=== PATIENT | female | born 1975 | race American Indian/Alaskan Native ===

== ENCOUNTER 2016-10-18 14:55 | Outpatient (CLI) | payer OTHER, MEDICAID ==
[2016-10-18 15:16] VITALS: BP 124/80
== END 2016-10-18 17:52 | disposition home or self-care (01) ==
LOC: TRG 14:55
PROVIDERS: ATTEND Obstetrics & Gynecology
DX: O09.523 Supervision of elderly multigravida, third trimester (principal); O47.1 False labor at or after 37 completed weeks of gestation; Z3A.39 39 weeks gestation of pregnancy
CPT/HCPCS: 59025

== ENCOUNTER 2016-10-18 22:47 | Outpatient (CLI) | payer MEDICAID, OTHER | END 2016-10-19 00:51 | disposition home or self-care (01) | LOC: TRG 22:47 | PROVIDERS: ATTEND Obstetrics & Gynecology | DX: O09.523 Supervision of elderly multigravida, third trimester (principal); O62.9 Abnormality of forces of labor, unspecified; Z3A.39 39 weeks gestation of pregnancy ==

== ENCOUNTER 2016-10-19 11:35 | Inpatient (IN) | payer OTHER ==
[2016-10-19] MEDS ORDERED: BRETHINE SUB-Q PRN (12:41)
[2016-10-19] MEDS ORDERED: ePHEDrine SULFATE IV PRN ×2 (12:41→15:40)
[2016-10-19] MEDS ORDERED: MINERAL OIL PO PRN (12:41)
[2016-10-19] MEDS ORDERED: STADOL IV PRN (12:41)
[2016-10-19] MEDS ORDERED: SUBLIMAZE IV PRN (12:41)
[2016-10-19] MEDS ORDERED: BRETHINE IVP PRN (12:41)
[2016-10-19] MEDS ORDERED: XYLOCAINE 2% INFILTRATI ONE (12:41)
[2016-10-19] MEDS ORDERED: POLYCILLIN/NS 2 GM/100 ML 2 GM/100 ML BAG IV ONE (12:41)
[2016-10-19] MEDS ORDERED: NARCAN 0.4 MG/1 ML IV PRN (12:41)
[2016-10-19] MEDS ORDERED: ZOFRAN IV PRN ×2 (12:41→18:47)
[2016-10-19] MEDS ORDERED: PHENERGAN PO PRN ×2 (12:41→18:47)
--- NOTE | 2016-10-19 12:49 | History and Physical Report ---
History of Present Illness Date of examination: 10/19/16 Date of admission: 10/19/16 12:35 Chief complaint: Labor History of present illness: Pt is a 40yo BF EDC 10/19/16; EGA 40 0/7 weeks presents to L&D complaining of RUC's q 3-5 mins. She received care at [facility] since 15 weeks and course has been complicated by AMA and Positive syphilis with a 1:8 titer that was treated 04/09/16, and followed by ID. records are available and GBS is Positive Past History Past Medical History: no pertinent history Past Surgical History: no surgical history [employer] History: herpes, syphilis Family/Genetic History: none Social history: no significant social history, single - Obstetrical History Expected Date of Delivery: 10/19/16 Actual Gestation: 40 Week(s) 0 Day(s) : 4 Medications and Allergies Allergies Allergy/AdvReac Type Severity Reaction Status Date / Time No Known Allergies Allergy Unverified 10/18/16 15:28 Home Medications Medication Instructions Recorded Confirmed Last Taken Type No Known Home Medications [No 10/18/16 10/18/16 Unknown History Reported Home Medications] Review of Systems All systems: negative - Physical Exam Breasts: Positive: deferred Cardiovascular: Regular rate Lungs: Positive: Clear to auscultation Abdomen: Positive: normal appearance Genitourinary (Female): Positive: normal external genitalia Vagina: Positive: normal moisture Uterus: Positive: enlarged Extremities: Positive: normal - Obstetrical FHR: category 1 Uterine Contraction Monitor Mode: External Cervical Dilatation: 5 Cervical Effacement Percentage: 70 station: -2 Uterine Contraction Pattern: Regular Uterine Tone Measurement Phase: Contraction Uterine Contraction Intensity: Moderate Results All other labs normal. Assessment and Plan - Patient Problems (1) 39 weeks gestation of Onset Date: 10/19/16 Current Visit: Yes Status: Acute Plan to address problem: A: IUP @ 39 6/7 weeks in labor + RPR - treated this + GBS AMA P: Admit to L&D for expectant vaginal delivery Obtain RPR today IV Ampicillin
[2016-10-19] MEDS ORDERED: LACTATED RINGERS 1,000 ML IV SCH (13:00)
[2016-10-19] MEDS ORDERED: PITOCin/NS 20 UNIT/1000ML DRIP 20 UNITS/1,000 ML BAG IV SCH ×2 (13:00→19:00)
[2016-10-19] MEDS ORDERED: PITOCin/NS 30 UNIT/500ML 30 UNITS/500 ML BAG IV SCH ×2 (13:00)
[2016-10-19 14:12] LABS: Hemoglobin 13.3 gm/dl (10.1-14.3); Mean Corpuscular HGB Conc 33 % (30-34); Mean Corpuscular Hemoglobin 26 pg (28-32); Mean Corpuscular Volume 79 fl (79-97); Platelet Count 258 K/mm3 (140-440); Red Blood Count 5.06 M/mm3 (3.65-5.03); Red Cell Distribution Width 14.7 % (13.2-15.2); White Blood Count 8.5 K/mm3 (4.5-11.0)
[2016-10-19] MEDS ORDERED: NARCAN 2 MG/2 ML IV PRN (15:40)
--- NOTE | 2016-10-19 15:41 | Anesthesia Consultation ---
Anesthesia Consult and Med Hx Date of service: 10/19/16 - Airway Anesthetic Teeth Evaluation: Good ROM Head & Neck: Adequate Mental/Hyoid Distance: Adequate Mallampati Class: Class II Intubation Access Assessment: Probably Good - Pulmonary Exam CTA: Yes - Cardiac Exam Cardiac Exam: RRR - Pre-Operative Health Status ASA Pre-Surgery Classification: ASA2 Proposed Anesthetic Plan: Epidural, Spinal - Pulmonary Hx Asthma: No - Cardiovascular System Hx Hypertension: No - Central Nervous System Hx Seizures: No Hx Psychiatric Problems: No - Endocrine Hx Renal Disease: No Hx Hypothyroidism: No Hx Hyperthyroidism: No - Hematic Hx Anemia: No Hx Sickle Cell Disease: No - Other Systems Hx Alcohol Use: No Hx Obesity: Yes - Additional Comments Anesthesia Medical History Comments: +IUP
[2016-10-19] MEDS ORDERED: fentaNYL-BUPIV 2 MCG/ML-0.125% 200 MCG/100 ML BAG EPIDURAL SCH (16:00)
[2016-10-19] MEDS ORDERED: POLYCILLIN/NS 1 GM/50 ML 1 GM/50 ML BAG IV SCH (16:44)
--- NOTE | 2016-10-19 18:46 | Procedure Note ---
OB Delivery Note - Delivery Date of Delivery: 10/19/16 Surgeon: LUCILA CAMPOS Estimated blood loss: 100cc - Vaginal Delivery presentation: vertex Delivery position: OA Intrapartum events: none Delivery induction: none Delivery augmentation: rupture of membranes, pitocin Delivery monitor: external FHT, external uterine Route of delivery: Indicators for instrumentation: nonreassuring FHR tracing Delivery placenta: spontaneous Delivery cord: 3 umbilical vessels Episiotomy: none Delivery laceration: none Anesthesia: epidural Delivery comments: Infant delivered OA, and placed on Mom's chest for [id number] bonding and delayed cord clamping. - Infant A at 1 minute: 8 at 5 minutes: 9 Gender: Male (3639gms)
[2016-10-19] MEDS ORDERED: TUCKS PAD TP PRN (18:47)
[2016-10-19] MEDS ORDERED: DULCOLAX PR PRN (18:47)
[2016-10-19] MEDS ORDERED: TYLENOL PO PRN (18:47)
[2016-10-19] MEDS ORDERED: PHENERGAN PR PRN (18:47)
[2016-10-19] MEDS ORDERED: BENADRYL PO PRN (18:47)
[2016-10-19] MEDS ORDERED: LANSINOH TP PRN (18:47)
[2016-10-19] MEDS ORDERED: NORCO 5/325 PO PRN (18:47)
[2016-10-19] MEDS ORDERED: MILK OF MAGNESIA PO PRN (18:47)
[2016-10-19] MEDS ORDERED: SODIUM CHLORIDE FLUSH SYRINGE 10 ML IV NR (19:00)
[2016-10-19] MEDS: MOTRIN PO SCH (20:55)
[2016-10-20] MEDS: FEOSOL PO SCH ×2 (04:32→23:10)
[2016-10-20] MEDS: COLACE PO SCH ×3 (04:32→23:10)
[2016-10-20] MEDS: MOTRIN PO SCH ×4 (04:33→23:11)
[2016-10-20 05:12] LABS: Hematocrit 34.8 % (30.3-42.9); Hemoglobin 11.6 gm/dl (10.1-14.3)
[2016-10-20] MEDS ORDERED: PRENATAL VITAMIN PO SCH (10:00)
[2016-10-20 10:37] LABS: Rapid Plasma Reagin Reactive (Nonreactive)
--- NOTE | 2016-10-20 11:28 | Progress Note ---
Assessment and Plan - Patient Problems (1) 39 weeks gestation of Onset Date: 10/19/16 Current Visit: Yes Status: Resolved (2) (normal spontaneous vaginal delivery) Onset Date: 10/20/16 Current Visit: Yes Status: Resolved Plan to address problem: A: S/P - PPD #1 Doing well P: May go home tomorrow Subjective - Subjective Date of service: 10/20/16 Principal diagnosis: s/p - PPD #1 Interval history: Pt is feeling well without complaints. Bleeding improved. Patient reports: appetite normal, voiding normally, pain well controlled, flatus , ambulating normally : doing well, nursing well Objective - Vital Signs Latest vital signs: Vital Signs Temp Pulse Resp BP BP Pulse Ox 10/20/16 08:31 98.1 F 67 18 86/53 86/53 10/20/16 04:38 98 F 60 20 113/74 10/20/16 01:37 98.5 F 58 L 18 109/67 10/19/16 21:15 98.5 F 66 18 121/71 10/19/16 19:56 65 124/75 10/19/16 19:41 71 125/63 10/19/16 19:26 88 126/87 10/19/16 19:25 73 98 10/19/16 19:20 94 H 97 10/19/16 19:15 71 98 10/19/16 19:11 71 118/72 10/19/16 19:10 72 97 10/19/16 19:05 87 97 10/19/16 19:00 90 97 10/19/16 18:56 97.1 F L 93 H 121/68 10/19/16 18:55 90 96 10/19/16 18:41 100 H 127/73 10/19/16 18:27 99 H 132/83 100 10/19/16 18:22 101 H 100 10/19/16 18:17 97 H 98 10/19/16 18:12 91 H 99 10/19/16 18:11 90 120/70 10/19/16 18:07 87 99 10/19/16 18:02 74 100 10/19/16 17:57 78 100 10/19/16 17:56 84 118/65 10/19/16 17:52 77 99 10/19/16 17:47 82 100 10/19/16 17:43 90 115/64 10/19/16 17:42 93 H 100 10/19/16 17:37 96 H 98 10/19/16 17:32 94 H 99 10/19/16 17:27 88 98 10/19/16 17:26 111 H 102/64 10/19/16 17:22 102 H 98 10/19/16 17:17 86 100 10/19/16 17:12 105 H 99 10/19/16 17:11 81 122/72 10/19/16 17:07 94 H 99 10/19/16 17:02 114 H 100 10/19/16 16:57 109 H 118/68 100 10/19/16 16:52 88 100 10/19/16 16:47 95 H 100 10/19/16 16:44 93 H 93 10/19/16 16:42 111 H 96 10/19/16 16:41 98 H 117/59 10/19/16 16:37 95 H 94 10/19/16 16:33 89 117/55 10/19/16 16:32 91 H 96 10/19/16 16:31 91 H 86 10/19/16 16:29 105 H 89/50 10/19/16 16:28 90 95/53 10/19/16 16:27 92 H 97 10/19/16 16:26 100 H 94 10/19/16 16:24 100 H 98/57 10/19/16 16:22 96 H 102/51 95 10/19/16 16:20 96 H 105/58 10/19/16 16:19 93 H 94 10/19/16 16:18 96 H 100/54 10/19/16 16:17 100 H 106/50 94 10/19/16 16:14 100 H 97/53 94 10/19/16 16:13 109 H 96/53 10/19/16 16:12 104 H 97 10/19/16 16:11 102 H 114/57 10/19/16 16:08 86 116/55 10/19/16 16:07 82 95 10/19/16 16:06 71 108/53 10/19/16 16:04 75 120/58 10/19/16 16:02 76 127/59 97 10/19/16 16:00 72 124/56 10/19/16 15:59 82 124/61 10/19/16 15:57 74 98 10/19/16 15:52 70 97 10/19/16 15:47 72 96 10/19/16 15:42 79 122/75 94 10/19/16 14:56 74 144/71 10/19/16 14:55 76 98 10/19/16 14:53 80 118/78 10/19/16 14:50 98 H 100 10/19/16 14:45 76 98 10/19/16 14:40 86 99 10/19/16 14:35 81 98 10/19/16 14:30 70 100 10/19/16 14:25 78 97 10/19/16 14:20 81 98 10/19/16 14:15 80 97 10/19/16 14:10 69 97 10/19/16 14:08 97.3 F L 68 16 98 10/19/16 14:05 71 96 10/19/16 14:00 71 98 10/19/16 13:55 75 98 Intake and Output 10/19/16 10/20/16 10/20/16 22:59 06:59 14:59 Intake Total 360 240 240 Output Total 700 250 Balance -340 -10 240 Intake: Oral 240 Intake, Free Water 360 240 Output: Urine 700 250 Indwelling Catheter 100 Void 600 250 Other: Total, Intake Amount 240 Total, Output Amount 600 250 # Voids Void 2 1 Estimated Blood Loss 100 - Exam Breasts: Present: deferred Cardiovascular: Present: Regular rate Lungs: Present: Clear to auscultation Abdomen: Present: normal appearance, soft Uterus: Present: normal, firm, fundal height below umbilicus Extremities: Present: normal - Labs Labs: Abnormal lab results 10/19/16 Range/Units 13:40 RBC 5.06 H (3.65-5.03) M/mm3 MCH 26 L (28-32) pg Laboratory Tests 10/19/16 10/19/16 10/19/16 13:40 13:40 14:36 WBC 8.5 RBC 5.06 H Hgb 13.3 Hct 40.0 MCV 79 MCH 26 L MCHC 33 RDW 14.7 Plt Count 258 RPR Titer 1:2 RPR Reactive Blood Type A POSITIVE Antibody Screen Negative 10/20/16 04:50 WBC RBC Hgb 11.6 Hct 34.8 MCV MCH MCHC RDW Plt Count RPR Titer RPR Blood Type Antibody Screen
--- NOTE | 2016-10-20 12:57 | Discharge Summary ---
Providers - Providers Date of Admission: 10/19/16 12:35 Date of discharge: 10/21/16 Attending physician: LUCILA CAMPOS Primary care physician: LUCILA CAMPOS Hospitalization Reason for admission: active labor, IUP at term Delivery: Episiotomy: none Laceration: none Other procedures: none complications: none Discharge diagnosis: IUP at term delivered [place] baby: male Hospital course: Unremarkable. Condition at discharge: Good Disposition: DC-01 TO HOME OR SELFCARE - Discharge Diagnoses (1) 39 weeks gestation of Status: Resolved (2) (normal spontaneous vaginal delivery) Status: Resolved Plan - Discharge Medications Prescriptions: HYDROcodone/APAP 5-325 [[place] 5-325 mg TAB] 1 each PO Q6H PRN #20 tablet PRN Reason: Pain, Moderate (4-6) Ibuprofen [Motrin 600 MG tab] 600 mg PO Q6H #30 tablet Vit-Fe Fumar-FA [ Vitamin] 1 each PO QDAY #30 tablet - Provider Discharge Summary Activity: routine, no sex for 6 weeks, no heavy lifting 4 weeks, no strenuous exercise Diet: routine Instructions: routine Additional instructions: [] Smoking cessation referral if applicable(refer to patient education folder for contact #) [] Refer to [facility]'s [facility] Booklet Call your doctor immediately for: * Fever > 100.5 * Heavy vaginal bleeding ( >1 pad per hour) * Severe persistent headache * Shortness of breath * Reddened, hot, painful area to leg or breast * Drainage or odor from incision. * Keep incision clean and dry at all times and follow doctor's instructions regarding bathing/showering - Follow up plan Follow up: LUCILA CAMPOS MD [Primary Care Provider] - 6 Weeks
[2016-10-20] MEDS ORDERED: BOOSTRIX IM ONE (18:47)
[2016-10-20] MEDS ORDERED: M-M-R II VACCINE SUB-Q ONE (18:47)
--- NOTE | 2016-10-20 18:55 | Progress Note ---
Subjective Date of service: 10/20/16 Principal diagnosis: s/p - PPD #1 Interval history: No anesthetic related complaints. Objective - Constitutional Vitals: Vital Signs - 12hr 10/20/16 10/20/16 10/20/16 08:31 12:23 16:42 Temperature 98.1 F 98.2 F 98.5 F Pulse Rate 67 80 Respiratory 18 18 18 Rate Blood Pressure 86/53 117/54 Blood Pressure 86/53 105/68 [Left] - Labs CBC & Chem 7: 10/20/16 04:50
[2016-10-21] MEDS: MOTRIN PO SCH (05:47)
[2016-10-21 18:43] VITALS: BP 133/77
== END 2016-10-21 19:11 | disposition home or self-care (01) | DRG 774 ==
LOC: TRG 11:35 → LD 12:35 → OB 20:45
PROVIDERS: ADMIT Obstetrics & Gynecology; ATTEND Obstetrics & Gynecology
PROC: 10E0XZZ Delivery of Products of Conception, External Approach (ICD-10-PCS; principal; 2016-10-19)
PROC: 3E0S3CZ (ICD-10-PCS; 2016-10-19)
PROC: 00HU33Z Insertion of Infusion Device into Spinal Canal, Percutaneous Approach (ICD-10-PCS; 2016-10-19)
PROC: 3E0234Z Introduction of Serum, Toxoid and Vaccine into Muscle, Percutaneous Approach (ICD-10-PCS; 2016-10-20)
DX: O99.824 Streptococcus B carrier state complicating childbirth (principal); O98.12 Syphilis complicating childbirth; O98.52 Other viral diseases complicating childbirth; O76 Abnormality in fetal heart rate and rhythm complicating labor and delivery; O09.523 Supervision of elderly multigravida, third trimester; O99.214 Obesity complicating childbirth; E66.9 Obesity, unspecified; Z68.34 Body mass index [BMI] 34.0-34.9, adult; B00.9 Herpesviral infection, unspecified; Z37.0 Single live birth; Z23 Encounter for immunization; Z3A.40 40 weeks gestation of pregnancy
CPT/HCPCS: 36415; 85014; 85018; 85027; 86592; 86593; 86780; 86850; 86900; 86901; 99211; G0463; J0290; J0595; J2405; J2590; J7120

== ENCOUNTER 2017-03-21 08:05 | Day surgery (SDC) | payer MEDICAID ==
[2017-03-21] MEDS ORDERED: ANCEF/STERILE WATER 2 GM/20 ML IV NR (09:07)
--- NOTE | 2017-03-21 09:08 | Anesthesia Consultation ---
Anesthesia Consult and Med Hx Date of service: 03/21/17 - Airway Anesthetic Teeth Evaluation: Good ROM Head & Neck: Adequate Mental/Hyoid Distance: Adequate Mallampati Class: Class II Intubation Access Assessment: Probably Good - Pulmonary Exam CTA: Yes - Cardiac Exam Cardiac Exam: RRR - Pre-Operative Health Status Proposed Anesthetic Plan: General - Pulmonary Hx Smoking: No - Cardiovascular System Hx Hypertension: No - Central Nervous System Hx Seizures: No Hx Psychiatric Problems: No - Gastrointestinal Hx Gastroesophageal Reflux Disease: No - Endocrine Hx Renal Disease: No - Hematic Hx Anemia: Yes (past hx) - Other Systems Hx Cancer: No
[2017-03-21] MEDS ORDERED: ZOFRAN IV PRN (09:09)
[2017-03-21] MEDS ORDERED: DILAUDID IV PRN (09:09)
--- NOTE | 2017-03-21 09:09 | Anesthesia Day of Surgery ---
Anesthesia Day of Surgery - Day of Surgery Patient Examined: Yes Patient H&P Reviewed: Yes Patient is NPO: Yes Beta Blockers: Yes Cardiac Clearance: Yes Pulmonary Clearance: Yes
[2017-03-21 09:10] LABS: Hematocrit 36.9 % (30.3-42.9); Hemoglobin 11.9 gm/dl (10.1-14.3)
--- NOTE | 2017-03-21 09:20 | Short Stay Summary ---
Short Stay Documentation Date of service: 03/21/17 Narrative H&P: Pt is a 41yo BF LMP 03/14/17 presents for surgical evaluation and treatment of menorrhagia. Pelvic u/s showed an enlarged uterus 11 x 9 x 6cm. No focal masses seen. Endometrial biopsy showed benign proliferative endometrium. She is now scheduled for a Novasure endometrial ablation. - History Principal diagnosis: Menorrhagia H&P: obtained from office Past Medical History: No medical history Past Surgical History: Other (BTL; Right knee surgery) Social history: no significant social history, single - Allergies and Medications Current Medications: Allergies No Known Allergies Allergy (Verified 03/17/17 14:42) Home Medications Medication Instructions Recorded Confirmed Last Taken Type No Known Home Medications [No 03/17/17 03/17/17 Unknown History Reported Home Medications] Active Medications Cefazolin Sodium (Ancef/Sterile Water 2 Gm/20 Ml) 2 gm IV PREOP NR Stop: 03/21/17 23:59 Celecoxib (Celebrex) 200 mg PO PREOP NR Hydromorphone HCl (Dilaudid) 0.25 mg IV Q10MIN PRN PRN Reason: Pain, Moderate (4-6) Lactated Ringer's (Lactated Ringers) 1,000 mls @ 42 mls/hr IV DIRECT MAINOR Cefazolin Sodium (Ancef/Sterile Water 2 Gm/20 Ml) 2 gm in 20 mls @ 80 mls/hr IV PREOP NR PRN Reason: Protocol Midazolam HCl (Versed) 2 mg IV PREOP NR Stop: 03/21/17 23:59 Ondansetron HCl (Zofran) 4 mg IV ONCE PRN PRN Reason: Nausea And Vomiting Ondansetron HCl (Zofran) 4 mg IV PREOP NR - Physical exam General appearance: no acute distress Integumentary: no rash HEENT: Atraumatic Lungs: Clear to auscultation Breasts: deferred Heart: Regular rate Gastrointestinal: normal Female Genitourinary: deferred Extremities: no ischemia Neurological: Normal gait, Normal speech - Brief post op/procedure progress note Date of procedure: 03/21/17 Pre-op diagnosis: Menorrhagia Post-op diagnosis: same Procedure: 1. Hysteroscopy 2. Novasure endometrial ablation Anesthesia: MAC Findings: A 10 weeks size uterus with moderate amounts of endometrial tissue. Uterine cavity length 5.5cm, cavity width 4.5cm and 136W of Power was used for 59 seconds to perform the ablation. Surgeon: LUCILA CAMPOS Estimated blood loss: minimal Pathology: none Condition: stable - Hospital course Hospital course: Unremarkable. - Disposition Condition at discharge: Good Disposition: DC-01 TO HOME OR SELFCARE - Discharge Diagnoses (1) Menorrhagia with irregular cycle Status: Resolved Short Stay Discharge Plan Activity: no restrictions Diet: regular Follow up with: LANCE ESTEVEZ MD [Primary Care Provider] - 7 Days LUCILA CAMPOS MD [Staff Physician] - 14 Days Prescriptions: HYDROcodone/APAP 5-325 [[place] 5/325] 1 each PO Q6HR PRN #20 tablet PRN Reason: Pain Ibuprofen [Motrin] 800 mg PO Q8HR PRN #20 tablet PRN Reason: Moder Pain Unrelieved By [place]
[2017-03-21] MEDS ORDERED: DIPRIVAN 10 MG/ML IV ONE (09:36)
[2017-03-21] MEDS ORDERED: SUBLIMAZE ONE (09:36)
[2017-03-21] MEDS ORDERED: ZOFRAN IV NR (10:00)
[2017-03-21] MEDS ORDERED: ANCEF/STERILE WATER 2 GM/20 ML 2 GM/20 ML SYRINGE IV NR (10:00)
[2017-03-21] MEDS ORDERED: ZOFRAN ONE (10:00)
[2017-03-21] MEDS ORDERED: VERSED IV NR (10:00)
[2017-03-21] MEDS ORDERED: DECADRON ONE (10:00)
[2017-03-21] MEDS ORDERED: LACTATED RINGERS 1,000 ML IV SCH (10:00)
[2017-03-21] MEDS ORDERED: XYLOCAINE MPF 2% ONE (10:01)
[2017-03-21] MEDS ORDERED: NACL 0.9% IR ONE (10:08)
--- NOTE | 2017-03-21 10:26 | Post Anesthesia Evaluation ---
- Post Anesthesia Evaluation Patient Participated: Yes Airway Patent: Yes Stable Respiratory Function: Yes Nausea/Vomiting: No Temp > 96.8F: Yes Pain Manageable: Yes Adequeate Hydration: Yes Anesthesia Complications: No Block Receding Appropriately: Not Applicable Patient on Ventilator: No
--- NOTE | 2017-03-21 10:36 | Operative Report ---
Operative Report Operative Report: Date of procedure: 03/21/2017 Pre-operative diagnosis: Menorrhagia Post-operative diagnosis: Same Procedure name(s): 1. Hysteroscopy 2. NovaSure endometrial ablation Surgeon: Alex Regalado MD Gaming Floor Supervisor: None Anesthesia: Gen. mask EBL: 10 mL Findings: A 10 week size uterus with lush amounts of endometrial tissue. Uterine cavity length was 5.5 cm, cavity width was 4.5 cm and 136 W of Power was used for 59 seconds to perform the endometrial ablation. Procedure: After the patient was correctly identified, she was prepped and draped in the usual sterile fashion and placed in the dorsolithotomy position. First the bladder was emptied using a straight catheter, adnexa speculum was placed in the vaginal vault and the anterior cervix was grasped using single- tooth tenaculum. The cervical os was sequentially dilated, and the hysteroscope was introduced into the endometrial canal. Visualization of the endometrial cavity showed lush amounts of endometrial tissue. No submucosal fibroids were noted. The hysteroscope was then removed, and the NovaSure device was placed. The uterine cavity length was 5.5 cm, the cavity width was 4.5 cm and 136 W of Power was used for 59 seconds to perform the ablation. The NovaSure device was then removed, and again hysteroscopy was performed showing excellent ablation of endometrial cavity. At this point the procedure was considered complete. All instruments removed from the vagina. The patient tolerated the procedure well and was transported to recovery room in stable condition. r
[2017-03-21 16:35] VITALS: BP 114/71
== END 2017-03-21 12:27 | disposition home or self-care (01) ==
LOC: OR 08:05
PROVIDERS: ATTEND Obstetrics & Gynecology
DX: N92.0 Excessive and frequent menstruation with regular cycle (principal); Z98.51 Tubal ligation status; Z98.890 Other specified postprocedural states; Z79.899 Other long term (current) drug therapy
CPT/HCPCS: 36415; 58563; 81025; 85014; 85018; A4217; J0690; J1100; J2250; J2405; J2704; J3010; J7120